=== PATIENT | female | born 1940 | race Caucasian/White ===

== ENCOUNTER 2017-07-20 20:21 | Emergency (ER) | payer MEDICARE, BC ==
[~2017-07-20] VITALS: Ht 165.1 cm; Wt 72.6 kg
[2017-07-20 20:30] VITALS: BP 145/78
== END 2017-07-20 22:44 | disposition home or self-care (01) ==
LOC: ER 20:22
DX: F41.9 Anxiety disorder, unspecified (principal); F43.9 Reaction to severe stress, unspecified; E11.9 Type 2 diabetes mellitus without complications; E78.5 Hyperlipidemia, unspecified; I10 Essential (primary) hypertension; Z98.890 Other specified postprocedural states
CPT/HCPCS: 93005; 99284; A4606; Z7610